=== PATIENT | female | born 1950 | race Caucasian/White ===

== ENCOUNTER → 2017-06-09 | Outpatient (CLI) | payer MEDICARE ==
[~2017-06-09] MED LIST: HYDROCHLOROTH12.5 M1 PO; JANUMET 50-5001 EACH PO; LEVOTHYROXIN0.125 MG PO; METOPROLOL 25 M25 MG PO
--- NOTE | 2017-06-10 06:49 | RADIOLOGY REPORT PS360 ---
MRI-L-SPINE W/O, MRI-3D RENDERING/MYELOGRAM HISTORY: Low back pain, lumbar spondylosis LUMBAR PAIN ORDERING PHYSICIAN: Berto Rodrigues MD PATIENT AGE: 67 years COMPARISON: None TECHNIQUE: Standard multiplanar multiecho sequences are performed without contrast. 3-D MIP and myelographic images are also rendered and reviewed FINDINGS: There is normal alignment. Spinal cord ends at the L1 level. There is mild multilevel facet hypertrophic change from L1 to S1 T11-T12: Mild degenerative disc disease. T12-L1 and L1-L2 shows mild disc desiccation. L2-L3: Mild disc desiccation. Mild facet and ligamentum flavum hypertrophy with minimal bilateral lateral recess narrowing. L3-L4 and L4-5 Mild facet and ligamentum flavum hypertrophy. L5-S1: Unremarkable. No canal stenosis or disc herniation evident. IMPRESSION: 1. Mild lumbar spondylosis as detailed at each level above with mild disc desiccation and with mild multilevel facet arthritic changes 2. Mild bilateral lateral recess narrowing at L2-L3. 3. No disc herniation or canal stenosis
== END ==
LOC: RAD 07:36
DX: M54.5 Low back pain (principal); M51.36 Other intervertebral disc degeneration, lumbar region

== ENCOUNTER → 2017-07-01 | Outpatient (CLI) | payer MEDICARE ==
[2017-07-01 14:07] LABS: BUN 20 mg/dL (7-18)
[2017-07-01 14:12] LABS: GFR (ESTIMATED) 72 ML/MIN (59-)
== END ==
LOC: LAB 10:19
PROVIDERS: Internal Medicine Adolescent Medicine
DX: E78.5 Hyperlipidemia, unspecified (principal)